=== PATIENT | male | born 2000 | race Caucasian/White ===

== ENCOUNTER 2024-04-29 17:07 | Emergency (ER) | payer OTHER ==
[2024-04-29 17:37] VITALS: BP 117/74; O2SAT 99
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
== END 2024-04-29 18:09 | disposition home or self-care (01) ==
LOC: ED 17:07
DX: T75.4XXA Electrocution, initial encounter (principal); W86.8XXA Exposure to other electric current, initial encounter; Y92.138 Other place on military base as the place of occurrence of the external cause; Y99.1 Military activity
CPT/HCPCS: 93005; 99283